=== PATIENT | male | born 1965 | race Caucasian/White ===

== ENCOUNTER → 2023-08-23 11:03 | Outpatient (CLI) | payer BC, SELFPAY ==
--- NOTE | 2023-08-23 11:05 | DI.CT.S_ITS ---
PROCEDURE: CT SINUS SCREEN WO CON INDICATIONS: Chronic frontal sinusitis TECHNIQUE: Noncontrast 3.0 mm axial images acquired from the frontal sinuses to the mid-sella, with coronal and sagittal reformats. For radiation dose reduction, the following was used: automated exposure control, adjustment of mA and/or kV according to patient size. COMPARISON: None. FINDINGS: Image quality: Excellent. Maxillary Sinuses: No bony remodeling or destruction. Mucous retention cysts can be seen within the right maxillary sinus. Sinuses are otherwise clear. Ethmoid Air Cells: No bony remodeling or destruction. Sinuses are clear. Sphenoid Sinuses: No bony remodeling or destruction. Sinuses are clear. Frontal Sinuses: No bony remodeling or destruction. Sinuses are clear. Ostiomeatal Complexes: The ostiomeatal complexes are patent, yet they are constitutionally narrowed, with bilateral Leyda cells. Miscellaneous: Visualized intra-orbital contents are normal. No kenan bullosa or paradoxical turbinate curvature. There is moderate rightward nasal septal deviation, with a rightward directed bony nasal septal spur. IMPRESSION: No significant active paranasal sinus disease can be seen. The ostiomeatal complexes are patent, yet they are constitutionally narrowed, with bilateral Leyda cells. Moderate rightward nasal septal deviation is seen, with a rightward directed bony nasal septal spur. Dictated by: Lb Keenan M.D. on 08/23/2023 at 12:20 Approved by: Lb Keenan M.D. on 08/23/2023 at 12:21
== END ==
LOC: CT 11:04
PROVIDERS: PCP Student in an Organized Health Care Education/Training Program; Referring Provider Student in an Organized Health Care Education/Training Program; Visit Provider Student in an Organized Health Care Education/Training Program
DX: J32.1 Chronic frontal sinusitis (principal); J34.2 Deviated nasal septum
CPT/HCPCS: 70486